=== PATIENT | male | born 1995 | race Caucasian/White ===

== ENCOUNTER 2023-07-27 07:55 | Emergency (ER) | payer MEDICAID ==
[~2023-07-27] VITALS: Ht 167.6 cm; Wt 55.0 kg
[2023-07-27 08:02] VITALS: O2SAT 98
[2023-07-27] MEDS: ONDANSETRON HCL 4MG/2ML INJ IV STA (08:56)
[2023-07-27] MEDS: SODIUM CHLORIDE 0.9% 1,000 ML IV ONE (08:56)
[2023-07-27 09:04] LABS: BASOPHILS % 0.3 % (0.0-2.0); EOSINOPHILS % 0.2 % (0.0-5.0); HEMATOCRIT. 41.9 % (42.0-52.0); LYMPHOCYTES % 11.8 % (20.0-50.0); MEAN CORPUSCULAR HGB CONC 33.4 g/dL (31.0-37.0); MEAN CORPUSCULAR VOLUME 92.9 fL (80.0-94.0); MEAN PLATELET VOLUME 9.3 fl (7.4-10.4); MONOCYTES % 1.8 % (2.0-8.0); NEUTROPHILS % 85.9 % (40.0-76.0); PLATELET 230 x1000/uL (130-400); RED BLOOD CELL COUNT 4.51 mill/uL (4.7-6.1); WHITE BLOOD COUNT 11.4 x1000/uL (4.5-11.0)
[2023-07-27 09:19] LABS: ALANINE AMINOTRANSFERASE 18 IU/L (10-49); ALBUMIN 4.8 g/dL (3.2-4.8); ASPARTATE AMINOTRANSFERASE 28 IU/L (<34); BILIRUBIN TOTAL 0.2 mg/dL (0.1-1.0); CALCIUM 8.5 mg/dL (8.7-10.4); CARBON DIOXIDE 25 mEq/L (21-32); CHLORIDE 111 mEq/L (98-107); CREATININE 0.9 mg/dL (0.6-1.3); ETHANOL BLOOD 283 mg/dL (<10); GLUCOSE 126 mg/dL (70-105); POTASSIUM 3.6 mEq/L (3.5-5.1); PROTEIN TOTAL 7.1 g/dL (6.0-8.3); SODIUM 145 mEq/L (136-145); UREA NITROGEN BLOOD 9 mg/dL (9-23)
[2023-07-27] MEDS ORDERED: CHLORDIAZEPOXIDE 25MG CAPSULE PO ONE (13:15)
[2023-07-27 14:22] VITALS: BP 128/76; PULSE 86; RESP 16; TEMP 97.5
[2023-07-27] MEDS: CHLORDIAZEPOXIDE 25MG CAPSULE PO NR (14:30)
== END 2023-07-27 14:33 | disposition home or self-care (01) ==
LOC: ER 08:46
DX: F10.129 Alcohol abuse with intoxication, unspecified (principal); I10 Essential (primary) hypertension; Y90.8 Blood alcohol level of 240 mg/100 ml or more
CPT/HCPCS: 80053; 80320; 85025; 36415; 96361; 96374; 99291; J2405; J7030; Z7610 ×2; G0480